=== PATIENT | male | born 1965 | race Caucasian/White ===

== ENCOUNTER 2022-03-05 13:04 | Outpatient (CLI) | payer OTHER, SELFPAY ==
[2022-03-05 15:20] LABS: Albumin* 4.5 g/dL (3.3-5.0); Chloride* 102 mmol/L (96-114); Sodium* 137 mmol/L (135-149)
[2022-03-05 15:21] LABS: Potassium* 4.4 mmol/L (3.6-5.1)
[2022-03-05 15:22] LABS: Cholesterol* 186 mg/dL (90-199)
[2022-03-05 15:23] LABS: Alanine Aminotransferase* 36 U/L (4-50); Alkaline Phosphatase* 85 U/L (40-150); Aspartate Amino Transferase* 32 U/L (12-35); Bilirubin Total* 0.5 mg/dL (0.1-1.5); Blood Urea Nitrogen* 18 mg/dL (7-30); Calcium* 9.5 mg/dL (8.4-10.6); Carbon Dioxide* 23 mmol/L (20-32); Estimated Glomerular Filt Rate 88 ml/min; Glucose* 117 mg/dL (60-115); Total Protein* 7.3 g/dL (6.0-8.3); Triglycerides* 162 mg/dL (40-149)
[2022-03-05 15:24] LABS: HDL Cholesterol* 54 mg/dL (>=40); LDL Cholesterol Calculated 100 mg/dL (<100)
[2022-03-05 15:52] LABS: PSA Screen* 1.51 ng/mL (0.10-4.00)
[2022-03-12 15:28] LABS: Sex Hormone Binding Globulin 24 nmol/L (19-76); Testosterone, Free LC-MS/MS 33.2 pg/mL (47.0-244.0); Testosterone, LC-MS/MS 164 ng/dL (300-890)
== END 2022-03-05 13:05 | disposition home or self-care (01) ==
PROVIDERS: PCP Family Medicine; Visit Provider Family Medicine
DX: Z00.00 Encounter for general adult medical examination without abnormal findings (principal); E78.00 Pure hypercholesterolemia, unspecified; Z12.5 Encounter for screening for malignant neoplasm of prostate; Z13.6 Encounter for screening for cardiovascular disorders
CPT/HCPCS: 80053; 80061; 84153; 84270; 84402; 84403

== ENCOUNTER 2022-03-06 09:08 | Outpatient (CLI) | payer OTHER, SELFPAY | END 2022-03-06 09:09 | disposition home or self-care (01) | LOC: OP CLINIC 09:09 | PROVIDERS: PCP Family Medicine; Visit Provider Internal Medicine | DX: Z12.11 Encounter for screening for malignant neoplasm of colon (principal); K57.30 Diverticulosis of large intestine without perforation or abscess without bleeding; Z86.010 Personal history of colon polyps | CPT/HCPCS: 45378; J2250; J3010 ==

== ENCOUNTER 2023-02-24 07:59 | Outpatient (CLI) | payer OTHER, SELFPAY | END 2023-02-24 08:00 | disposition home or self-care (01) | LOC: NFLDREF 02-25 08:26 | PROVIDERS: PCP Family Medicine; Referring Provider Family Medicine; Visit Provider Family Medicine | DX: I10 Essential (primary) hypertension (principal); R79.89 Other specified abnormal findings of blood chemistry | CPT/HCPCS: 80053; 84270; 84402; 84403 ==

== ENCOUNTER 2023-03-02 08:07 | Outpatient (CLI) | payer OTHER, SELFPAY | END 2023-03-02 08:08 | disposition home or self-care (01) | PROVIDERS: PCP Family Medicine; Visit Provider Family Medicine | DX: Z00.00 Encounter for general adult medical examination without abnormal findings (principal); E87.5 Hyperkalemia; G62.9 Polyneuropathy, unspecified; R79.89 Other specified abnormal findings of blood chemistry; E66.9 Obesity, unspecified; I10 Essential (primary) hypertension; E78.00 Pure hypercholesterolemia, unspecified; E34.9 Endocrine disorder, unspecified; R73.9 Hyperglycemia, unspecified | CPT/HCPCS: 82607; 82746; 84443 ==

== ENCOUNTER 2023-11-08 08:03 | Outpatient (CLI) | payer OTHER, SELFPAY | END 2023-11-08 08:04 | disposition home or self-care (01) | LOC: NFLDREF 11-10 05:47 | PROVIDERS: PCP Family Medicine; Referring Provider Family Medicine; Visit Provider Family Medicine | DX: Z00.00 Encounter for general adult medical examination without abnormal findings (principal); I10 Essential (primary) hypertension; R79.89 Other specified abnormal findings of blood chemistry; E78.00 Pure hypercholesterolemia, unspecified; E66.9 Obesity, unspecified; R73.9 Hyperglycemia, unspecified; E87.5 Hyperkalemia; Z12.5 Encounter for screening for malignant neoplasm of prostate | CPT/HCPCS: 80053; 80061; 84270; 84402; 84403; G0103 ==